=== PATIENT | female | born 1960 | race Caucasian/White ===

== ENCOUNTER → 2018-01-31 | Outpatient (CLI) | payer BC ==
[2018-01-31 09:09] LABS: BASO % 1 % (0-3); EOS # 0.1 x10^3/uL (0.0-0.7); EOS % 2 % (0-3); HEMATOCRIT 46.1 % (36.0-47.0); HEMOGLOBIN 15.9 g/dL (12.0-15.5); LYMPH # 1.7 x10^3/uL (1.0-4.8); LYMPH % 29 % (24-48); MEAN CORPUSCULAR HEMOGLOBIN 31 pg (25-35); MEAN CORPUSCULAR HGB CONC 35 g/dL (31-37); MEAN CORPUSCULAR VOLUME 91 fL (79-100); MONO # 0.3 x10^3/uL (0.0-1.1); MONO % 6 % (0-9); NEUT # 3.6 x10^3uL (1.8-7.7); NEUT % 63 % (31-73); PLATELET COUNT 186 x10^3/uL (140-400); RED BLOOD COUNT 5.06 x10^6/uL (3.50-5.40); RED CELL DISTRIBUTION WIDTH 13.8 % (11.5-14.5); WHITE BLOOD COUNT 5.7 x10^3/uL (4.0-11.0)
[2018-01-31 09:35] LABS: CALCIUM 9.3 mg/dL (8.5-10.1); GFR 57.4; POTASSIUM 3.9 mmol/L (3.5-5.1)
--- NOTE | 2018-01-31 12:50 | CARD ---
MR#: [id number] Date of Study: 01/31/2018 Ordering Physician: BRAULIO WIN, Referring Physician: BRAULIO WIN, Tech: Mary Ellen Lazaro APPROVED REPORT EXAM: Two-dimensional and M-mode echocardiogram with Doppler and color Doppler. INDICATION Dyspnea Fatigue RISK FACTORS Hyperlipidemia Smoking 2D DIMENSIONS Left Atrium(2D)3.5 (1.6-4.0cm)IVSd1.2 (0.7-1.1cm) Aortic Root(2D)3.0 (2.0-3.7cm)LVDd4.0 (3.9-5.9cm) LVOT Diameter2.0 (1.8-2.4cm)PWd1.1 (0.7-1.1cm) LVDs2.5 (2.5-4.0cm)FS (%) 37.1 % SV46.4 ml Aortic Valve AoV Peak [place].164.2cm/sAoV VTI35.2cm AO Peak GR.10.8mmHgLVOT Peak [place].95.4cm/s LVOT VTI 22.73cmAO Mean GR.6mmHg KEVEN (VMAX)1.69je7ZIR (VTI)2.08cm2 Mitral Valve MV E Ryvmqrmg529.1cm/sMV DECEL YIEE616tz MV A Exjhwcwp32.6cm/sMV BCF53ka E/A Ratio1.3MVA (PHT)3.71cm2 TDI E/Lateral E'8.7E/Medial E'10.9 Pulmonary Valve PV Peak Hcexujcq835.7cm/sPV Peak Grad.7mmHg Tricuspid Valve RAP [id number] Pulmonary Vein S1 Sqkxigvo07.7cm/sD2 Mumurkfv56.8cm/s LEFT VENTRICLE The left ventricle is normal size. There is borderline concentric left ventricular hypertrophy. The l eft ventricular systolic function is normal and the ejection fraction is within normal range. The Eje ction Fraction is 55-60%. There is normal LV segmental wall motion. The left ventricular diastolic fu nction and filling is normal for age. RIGHT VENTRICLE The right ventricle is normal size. There is normal right ventricular wall thickness. The right ventr icular systolic function is normal. ATRIA The left atrium size is normal. The right atrium size is normal. The interatrial septum is intact wit h no evidence for an atrial septal defect or patent foramen ovale as noted on 2-D or Doppler imaging. AORTIC VALVE The aortic valve is not well visualized. Doppler and Color Flow revealed trace aortic regurgitation. There is no significant aortic valvular stenosis. MITRAL VALVE The mitral valve is normal in structure and function. There is no mitral valve stenosis. Doppler and Color Flow revealed no mitral valve regurgitation noted. TRICUSPID VALVE The tricuspid valve is normal in structure and function. Doppler and Color Flow revealed trace tricus pid regurgitation. PULMONIC VALVE The pulmonic valve is not well visualized. Doppler and Color Flow revealed trace pulmonic valvular re gurgitation. GREAT VESSELS The aortic root is normal in size. Normal pulmonary venous flow (Doppler). The IVC is normal in size and collapses >50% with inspiration. PERICARDIAL EFFUSION There is no evidence of significant pericardial effusion. Critical Notification Critical Value: No <Conclusion> The left ventricle is normal size. The left ventricular systolic function is normal and the ejection fraction is within normal range. The Ejection Fraction is 55-60%. There is borderline concentric left ventricular hypertrophy. There is no significant aortic valvular stenosis. Doppler and Color Flow revealed trace aortic regurgitation. Doppler and Color Flow revealed no mitral valve regurgitation noted. Doppler and Color Flow revealed trace tricuspid regurgitation. Signed by : Braulio Win MD Electronically Approved : 01/31/2018 12:49:12
== END | disposition home or self-care (01) ==
LOC: ECHO 07:48
PROVIDERS: ATTEND Internal Medicine Cardiovascular Disease
DX: R06.02 Shortness of breath (principal); R53.83 Other fatigue; E78.5 Hyperlipidemia, unspecified; F17.200 Nicotine dependence, unspecified, uncomplicated
CPT/HCPCS: 36415; 80048; 83735; 84443; 85025; 93306

== ENCOUNTER → 2018-03-05 | Outpatient (CLI) | payer BC ==
[2018-03-05 12:27] LABS: CREATININE 1.1 mg/dL (0.6-1.0); GFR 51.4; POTASSIUM 4.2 mmol/L (3.5-5.1)
== END | disposition home or self-care (01) ==
LOC: LAB 11:44
PROVIDERS: ATTEND Internal Medicine Cardiovascular Disease
DX: I10 Essential (primary) hypertension (principal)
CPT/HCPCS: 36415; 80048

== ENCOUNTER → 2018-05-06 | Outpatient (CLI) | payer BC ==
[2018-05-06 13:33] LABS: CALCIUM 9.3 mg/dL (8.5-10.1); GFR 57.4
== END | disposition home or self-care (01) ==
LOC: LAB 12:47
PROVIDERS: ATTEND Nurse Practitioner
DX: I10 Essential (primary) hypertension (principal)
CPT/HCPCS: 36415; 80048

== ENCOUNTER → 2019-01-12 | Outpatient (CLI) | payer BC | END | disposition home or self-care (01) | LOC: LAB 10:37 | PROVIDERS: ATTEND Psychiatry & Neurology Neurology with Special Qualifications in Child Neurology | DX: R53.1 Weakness (principal) | CPT/HCPCS: 82550; 82607; 82746; 83519; 83520; 84165; 84443; 85651; 84238 ==

== ENCOUNTER → 2019-06-18 | Outpatient (CLI) | payer BC ==
[2019-06-18 09:30] VITALS: BP 95/56
[2019-06-18 10:35] VITALS: BP 112/76
[2019-06-18 11:29] LABS: CSF CLARITY CLEAR; CSF COLOR COLORLESS; CSF RBC COUNT 0 /cmm (Not Established); CSF WBC COUNT 2 /cmm (Not Established)
--- NOTE | 2019-06-18 13:58 | RAD ---
Examination: LUMBAR PUNCTURE History: demyelinating disease FINDINGS: The procedure along with its risks and benefits were explained to the patient. Informed consent was obtained. A timeout procedure was performed. The patient was placed in the left anterior oblique position on the fluoroscopy table. The L5-S1 level was localized fluoroscopically. The overlying skin was sterilely prepped and infiltrated with 1% lidocaine for local anesthesia. Under fluoroscopic guidance, an 18-gauge needle hub was placed. A 25-gauge spinal needle was advanced into the thecal sac via the 18-gauge needle hub. A fluoroscopic image was obtained. Fluoroscopy time 1 minute. There was spontaneous return of clear cerebrospinal fluid. 14 mL were collected and placed in a nearly equal quantities within 4 separate vials which were sent to the lab. Instrumentation was withdrawn and a sterile dressing placed. There were no immediate complications. Postprocedural instructions were provided. IMPRESSION: 1. Successful fluoroscopically guided lumbar puncture. Electronically signed by: Laurent Merritt MD (06/18/2019 1:55 PM) [id number]
[2019-06-22 14:09] LABS: MYELIN BASIC PROTEIN 2.8 ng/mL (0.0-3.7)
[2019-06-23 14:09] LABS: ALBUMIN,CSF 21 mg/dL (11-48); ALBUMIN,SERUM 4.2 g/dL (3.8-4.9); CSF IGG INDEX 0.6 (0.0-0.7); IGG,SERUM 802 mg/dL (700-1600)
== END ==
LOC: RAD 08:30
PROVIDERS: ATTEND Psychiatry & Neurology Neurology with Special Qualifications in Child Neurology
DX: G37.8 Other specified demyelinating diseases of central nervous system (principal)
CPT/HCPCS: 36415; 62270; 62328; 82787; 82945; 83873; 83916; 87071; 87075; 87102; 87252; 89051

== ENCOUNTER → 2020-02-09 | Outpatient (CLI) | payer BC ==
[2019-06-18 10:35] VITALS: BP 112/76
[~2020-02-09] MED LIST: ALBU2.5V8 INH; ASPI-630 PO; BUDE10.2 IH; HYDR-3164 PO; HYDR12.58 PO; LEXAPRO20 MG PO; LISI-334 PO; LORA10TA68 PO; OMEP20TA8 PO; SIMV20TA18 PO
--- NOTE | 2020-02-09 15:06 | RAD ---
AP and Lateral Views of the Chest 02/09/2020 2:21 PM Indication: Reason: PREOP EVAL / Spl. Instructions: / History: Comparison: None Findings: There is no focal consolidation or infiltrate identified. The cardiomediastinal silhouette is within normal limits. There is no evidence of pneumothorax or pleural effusion. No acute osseous abnormalities are identified. Impression: No evidence of acute cardiopulmonary process. Electronically signed by: David Samuel MD (02/09/2020 3:03 PM) [id number]
== END ==
LOC: LAB 14:21
PROVIDERS: ATTEND Orthopaedic Surgery
DX: Z01.812 Encounter for preprocedural laboratory examination (principal); Z20.828 Contact with and (suspected) exposure to other viral communicable diseases
CPT/HCPCS: 71046; U0003

== ENCOUNTER 2020-02-12 07:52 | Day surgery (SDC) | payer BC ==
[~2020-02-12] VITALS: Ht 172.7 cm; Wt 83.0 kg
[~2020-02-12 07:52] MED LIST changes: -HYDR-3164 PO; +HYDROmorphone 2 MG/ML VIAL IV PRN; +IV RINGERS,LACTATED 1000ML 1,000 ML IV SCH; +LIDOCAINE 1% PF 2 ML VIAL. ID PRN; +MORPHINE SULFATE 2 MG/ML VIAL. IV PRN; +PROCHLORPERAZINE 10 MG/2 ML VIAL. IV PRN; +fentaNYL PF VIAL 100 MCG/2 ML VIAL IV PRN
[2020-02-12] MEDS ORDERED: ceFAZolin 2GM PREMIX 2 GM/50 ML BAG IV ONE (09:00)
[2020-02-12 09:01] LABS: BASO % 1 % (0-3); EOS # 0.1 x10^3/uL (0.0-0.7); EOS % 1 % (0-3); HEMATOCRIT 43.3 % (36.0-47.0); HEMOGLOBIN 14.9 g/dL (12.0-15.5); LYMPH # 1.3 x10^3/uL (1.0-4.8); LYMPH % 22 % (24-48); MEAN CORPUSCULAR HEMOGLOBIN 31 pg (25-35); MEAN CORPUSCULAR HGB CONC 34 g/dL (31-37); MEAN CORPUSCULAR VOLUME 90 fL (79-100); MONO # 0.3 x10^3/uL (0.0-1.1); MONO % 6 % (0-9); NEUT # 4.3 x10^3/uL (1.8-7.7); NEUT % 71 % (31-73); PLATELET COUNT 236 x10^3/uL (140-400); RED CELL DISTRIBUTION WIDTH 13.4 % (11.5-14.5); WHITE BLOOD COUNT 6.1 x10^3/uL (4.0-11.0)
[2020-02-12] MEDS ORDERED: MIDAZOLAM HCL/PF 2 MG/2 ML VIAL. ONE (09:02)
[2020-02-12] MEDS ORDERED: PROPOFOL 10 MG/ML (20ML) VIAL. IV ONE (09:02)
[2020-02-12] MEDS ORDERED: fentaNYL PF VIAL 100 MCG/2 ML VIAL ONE (09:02)
[2020-02-12] MEDS ORDERED: LIDOCAINE 2% PF 5 ML VIAL. ONE (09:02)
[2020-02-12 09:04] LABS: CALCIUM 9.1 mg/dL (8.5-10.1); CREATININE 1.1 mg/dL (0.6-1.0); POTASSIUM 4.1 mmol/L (3.5-5.1)
[2020-02-12] MEDS ORDERED: ONDANSETRON PF 4 MG/2 ML VIAL. ONE (09:04)
[2020-02-12] MEDS ORDERED: DEXAMETHASONE SOD PHOS 4 MG/ML VIAL ONE (09:04)
[2020-02-12] MEDS ORDERED: BUPIVACAINE MPF 0.25% 30 ML VIAL. ONE (09:24)
[2020-02-12] MEDS ORDERED: ceFAZolin SODIUM IV Push 1 GM VIAL. IVP ONE (09:42)
[2020-02-12] MEDS ORDERED: HYDR-3164 PO (09:51)
--- NOTE | 2020-02-12 09:53 | DISCH ---
DISCHARGE INSTRUCTIONS Condition on Discharge Condition on Discharge: Stable Activity After Discharge Activity Instructions for Disc: Other, see below (May use hand for fine motor use such as eating writing typing, avoid hard grasping or lifting) Lifting Instructions after Dis: No heavy lifting Weight Bearing Status after Di: As tolerated Diet after Discharge Diet after Discharge: Regular Wound Incision Care Wound/Incision Care: Do not change dressing (Keep dressing clean and dry and do not remove unless wet or soiled) Contacting the [facility] after DC Call your doctor for: Concerns you may have Follow-Up Follow up with: Dr. Boudreaux 10 days ZAINA BOUDREAUX MD Feb 12, 2020 09:53
[2020-02-12] MEDS ORDERED: SEVOFLURANE 16 TO 30 MINUTES. IH ONE (10:04)
[2020-02-12 10:45] VITALS: BP 102/80
[2020-02-12] MEDS ORDERED: HYDROcodone/APAP 5/325MG 1 TAB TABLET PO ONE (10:45)
--- NOTE | 2020-02-12 22:08 | PDOC4 ---
Operative Note Operative Note Date of surgery: 02/12/2020 Preoperative diagnosis: Right carpal tunnel syndrome Postoperative diagnosis: Same with moderate median nerve compression Operative procedure: Right carpal tunnel release Surgeon: Janusz Game Producer: Morales stanley Anesthesia: General Estimated blood loss: 1 cc Complications: None Operative indications: Please see my preoperative orthopedic clinic note for detailed operative indications and note documented right carpal tunnel syndrome based on clinical examination and verified by EMG testing Operative text: Patient was identified procedure verified patient placed in supine position on operating table. After adequate amounts of general anesthesia were administered the right upper extremity was prepped and draped in standard sterile fashion and after timeout was performed patient procedure identified and verified the right upper extremity was exsanguinated by Esmarch bandage tourniquet inflated to 250 mmHg and a longitudinal incision made just distal to the distal wrist crease dissection carried out down to the transverse carpal ligament which was sharply divided at its midpoint with a scalpel and then divided proximally and distally with blunt Metzenbaum scissors and verification of entire release of the transverse carpal ligament both visually and palpably. No synovitis was noted in the flexor tendons median nerve was noted to have moderate compression. Thorough irrigation carried out and skin closure accomplished with nylon suture sterile soft dressings were applied. Patient was returned to recovery room in stable condition fingers noted to be warm pink following deflation of the tourniquet ZAINA VIDES MD Feb 12, 2020 22:08
== END 2020-02-12 11:15 | disposition home or self-care (01) ==
LOC: SURG 07:52
PROVIDERS: ATTEND Orthopaedic Surgery
DX: G56.01 Carpal tunnel syndrome, right upper limb (principal); I10 Essential (primary) hypertension; E78.00 Pure hypercholesterolemia, unspecified; K21.9 Gastro-esophageal reflux disease without esophagitis; F41.9 Anxiety disorder, unspecified; F32.9 Major depressive disorder, single episode, unspecified; Z90.710 Acquired absence of both cervix and uterus; Z98.890 Other specified postprocedural states; Z79.899 Other long term (current) drug therapy; Z79.82 Long term (current) use of aspirin; Z88.1 Allergy status to other antibiotic agents; Z88.8 Allergy status to other drugs, medicaments and biological substances
CPT/HCPCS: 36415; 64721; 80048; 85025; J0690; J1100; J2405; J2704; J3010; J3490; J2250